=== PATIENT | female | born 1955 | race Caucasian/White ===

== ENCOUNTER 2018-10-04 07:31 | Day surgery (SDC) | payer OTHER ==
[~2018-10-04] VITALS: Ht 152.4 cm; Wt 56.7 kg
[2018-10-04] MEDS ORDERED: LIDOCAINE 2% 100 MG/5 ML UJET TP ONE (10:06)
[2018-10-04] MEDS ORDERED: fentaNYL 0.05 MG/ML VIAL ONE (10:06)
[2018-10-04] MEDS ORDERED: fentaNYL 0.05 MG/ML VIAL IVP ONE (10:30)
== END 2018-10-04 11:22 | disposition home or self-care (01) ==
LOC: MMU 07:31 → MOR 07:31
PROVIDERS: ATTEND Internal Medicine Gastroenterology
DX: Z12.11 Encounter for screening for malignant neoplasm of colon (principal); E78.00 Pure hypercholesterolemia, unspecified; I10 Essential (primary) hypertension; Z80.0 Family history of malignant neoplasm of digestive organs; Z88.1 Allergy status to other antibiotic agents; Z79.899 Other long term (current) drug therapy; Z98.890 Other specified postprocedural states; Z98.51 Tubal ligation status; Z87.442 Personal history of urinary calculi
CPT/HCPCS: 45378; J3010